=== PATIENT | female | born 1960 | race American Indian/Alaskan Native ===

== ENCOUNTER → 2017-07-13 12:37 | Outpatient (CLI) | payer OTHER | END | disposition home or self-care (01) | LOC: D.MAMMO 12:37 | DX: Z12.31 Encounter for screening mammogram for malignant neoplasm of breast (principal) ==

== ENCOUNTER → 2018-01-04 08:10 | Outpatient (CLI) | payer OTHER ==
[2018-01-04 08:58] LABS: ALBUMIN 3.9 g/dL (3.4-5.0); BILIRUBIN - DIRECT 0.13 mg/dL (0.00-0.30); BILIRUBIN - INDIRECT 0.36 mg/dL (0.00-1.00); BILIRUBIN - TOTAL 0.49 mg/dL (0.2-1.3); PROTEIN - SERUM 7.6 g/dL (6.4-8.2)
== END | disposition home or self-care (01) ==
LOC: D.US 01-03 09:30
PROVIDERS: Internal Medicine Gastroenterology
DX: R74.8 Abnormal levels of other serum enzymes (principal)

== ENCOUNTER → 2018-01-28 10:02 | Outpatient (CLI) | payer OTHER ==
[2018-01-28 11:06] LABS: BASOPHILS 1.3 % (0-2); EOSINOPHILS 0 % (0-7); HEMATOCRIT 41.8 % (36.0-48.0); HEMOGLOBIN 14.2 g/dL (12-16); IMMATURE GRANULOCYTES 0.2 % (0-5); LYMPHOCYTES 35.8 % (15-50); MCH 32.7 pg (26.0-34.0); MCV 96.3 fL (80.0-100.0); MEAN PLATELET VOLUME 9.6 fL (7.4-10.4); MONOCYTES 10.6 % (2-11); NEUTROPHILS 52.1 % (40-80); PLATELET COUNT 437 10x3/uL (130-400); RBC 4.34 10x6/uL (4.00-5.40); RDW 12.7 % (11.5-14.5); WBC 5.4 10x3/uL (4.8-10.8)
[2018-01-28 11:15] LABS: INR 0.98 (0.85-1.17); PROTIME 12.6 SECONDS (11.6-15.0)
[2018-01-28 11:32] LABS: ALBUMIN 3.9 g/dL (3.4-5.0); ALKALINE PHOSPHATASE 105 U/L (46-116); ALT (SGPT) 110 U/L (10-68); BILIRUBIN - DIRECT 0.16 mg/dL (0.00-0.30); BILIRUBIN - INDIRECT 0.44 mg/dL (0.00-1.00); CALC OSMOLALITY 279 mosm/kg (275-300); CALCIUM 8.9 mg/dL (8.5-10.1); CARBON DIOXIDE 26.9 mmol/L (21.0-32.0); CHLORIDE - SERUM 105 mmol/L (98-107); CHOL - HDL RATIO 5.6 ratio (2.3-4.1); CHOLESTEROL, TOTAL 220 mg/dL (0-200); CREATININE - SERUM 0.8 mg/dL (0.6-1.3); FERRITIN 73 ng/mL (3-244); GAMMA GT 98 U/L (5-85); GLUCOSE 102 mg/dL (74-106); HDL CHOLESTEROL 39 mg/dL (32-96); LDL CHOLESTEROL 139 mg/dL (0-100); LDL-HDL RATIO 3.6 ratio (1.5-3.5); POTASSIUM - SERUM 4.6 mmol/L (3.5-5.1); PROTEIN - SERUM 7.3 g/dL (6.4-8.2); SODIUM 140 mmol/L (136-145); TRIGLYCERIDE 213 mg/dL (30-200); UREA NITROGEN 14 mg/dL (7-18); eGFR NON AFRICAN AMERICAN 77 mL/min (90-120)
[2018-01-28 11:37] LABS: % SATURATION 31 % (15-55); IRON 111 ug/dl (35-150); TOTAL IRON BIND CAPACITY 358 ug/dl (260-445); UNSAT IRON BIND CAPACITY 247 ug/dl (150-375)
[2018-01-29 08:15] LABS: HAPTOGLOBIN 96 mg/dL (34-200)
[2018-01-29 09:12] LABS: FOLATE (FOLIC ACID) - SERUM 11.4 ng/mL (>3.0)
[2018-01-29 10:13] LABS: ALPHA FETOPROTEIN -(TUMOR MRK) 2.3 ng/mL (0.0-8.3)
[2018-01-29 14:12] LABS: ANA REFLEX - DIRECT Negative (Negative)
[2018-01-31 14:16] LABS: SMOOTH MUSCLE ABS (ACTIN) 10 Units (0-19)
== END | disposition home or self-care (01) ==
LOC: D.LAB 10:02
PROVIDERS: Internal Medicine Gastroenterology
DX: K76.0 Fatty (change of) liver, not elsewhere classified (principal); R74.8 Abnormal levels of other serum enzymes; K25.9 Gastric ulcer, unspecified as acute or chronic, without hemorrhage or perforation; R12 Heartburn; R13.10 Dysphagia, unspecified

== ENCOUNTER → 2018-07-08 07:44 | Outpatient (CLI) | payer OTHER ==
[2018-07-08 08:56] LABS: ALBUMIN 3.7 g/dL (3.4-5.0); BILIRUBIN - DIRECT 0.13 mg/dL (0.00-0.30); BILIRUBIN - INDIRECT 0.43 mg/dL (0.00-1.00); BILIRUBIN - TOTAL 0.56 mg/dL (0.2-1.3); PROTEIN - SERUM 7.2 g/dL (6.4-8.2)
== END | disposition home or self-care (01) ==
LOC: D.US 07:44
PROVIDERS: Internal Medicine Gastroenterology
DX: K76.0 Fatty (change of) liver, not elsewhere classified (principal); K25.9 Gastric ulcer, unspecified as acute or chronic, without hemorrhage or perforation; R79.89 Other specified abnormal findings of blood chemistry

== ENCOUNTER → 2018-08-05 16:10 | Outpatient (CLI) | payer OTHER | END | disposition home or self-care (01) | LOC: D.CT 16:10 | DX: R05 Cough (principal) ==

== ENCOUNTER 2018-09-28 07:58 | Outpatient (CLI) | payer OTHER | END 2018-09-28 23:59 | disposition home or self-care (01) | LOC: D.MAMMO 07:58 | DX: Z12.31 Encounter for screening mammogram for malignant neoplasm of breast (principal) ==

== ENCOUNTER → 2018-12-15 06:49 | Outpatient (CLI) | payer BC ==
[2018-12-15 07:47] LABS: ALBUMIN 3.7 g/dL (3.4-5.0); BILIRUBIN - DIRECT 0.09 mg/dL (0.00-0.30); BILIRUBIN - INDIRECT 0.31 mg/dL (0.00-1.00); BILIRUBIN - TOTAL 0.4 mg/dL (0.2-1.3); PROTEIN - SERUM 7.5 g/dL (6.4-8.2)
== END | disposition home or self-care (01) ==
LOC: D.US 06:49
PROVIDERS: Internal Medicine Gastroenterology
DX: K76.0 Fatty (change of) liver, not elsewhere classified (principal)

== ENCOUNTER → 2019-05-29 09:15 | Outpatient (CLI) | payer BC ==
[2019-05-29 10:13] LABS: ALBUMIN 3.7 g/dL (3.4-5.0); BILIRUBIN - DIRECT 0.13 mg/dL (0.00-0.30); BILIRUBIN - INDIRECT 0.26 mg/dL (0.00-1.00); BILIRUBIN - TOTAL 0.39 mg/dL (0.2-1.3); PROTEIN - SERUM 7.4 g/dL (6.4-8.2)
== END | disposition home or self-care (01) ==
LOC: D.US 09:15
PROVIDERS: ATTEND Internal Medicine Gastroenterology
DX: K76.0 Fatty (change of) liver, not elsewhere classified (principal)

== ENCOUNTER → 2020-06-14 07:47 | Outpatient (CLI) | payer BC ==
[2020-06-14 08:48] LABS: ALBUMIN 3.9 g/dL (3.4-5.0); BILIRUBIN - DIRECT 0.14 mg/dL (0.00-0.30); BILIRUBIN - INDIRECT 0.3 mg/dL (0.00-1.00); BILIRUBIN - TOTAL 0.44 mg/dL (0.2-1.3); PROTEIN - SERUM 7.2 g/dL (6.4-8.2)
== END | disposition home or self-care (01) ==
LOC: D.US 06-04 08:00
PROVIDERS: ATTEND Internal Medicine Gastroenterology
DX: K76.0 Fatty (change of) liver, not elsewhere classified (principal)

== ENCOUNTER → 2020-12-24 07:53 | Outpatient (CLI) | payer BC ==
[2020-12-24 09:10] LABS: ALBUMIN 3.9 g/dL (3.4-5.0); BILIRUBIN - DIRECT 0.06 mg/dL (0.00-0.30); BILIRUBIN - INDIRECT 0.25 mg/dL (0.00-1.00); BILIRUBIN - TOTAL 0.31 mg/dL (0.2-1.3); PROTEIN - SERUM 7.4 g/dL (6.4-8.2)
== END | disposition home or self-care (01) ==
LOC: D.US 12-09 08:00
PROVIDERS: ATTEND Internal Medicine Gastroenterology
DX: K76.0 Fatty (change of) liver, not elsewhere classified (principal); Z12.31 Encounter for screening mammogram for malignant neoplasm of breast